=== PATIENT | female | born 1985 | race Caucasian/White ===

== ENCOUNTER → 2017-10-07 | Outpatient (REF) | payer OTHER | LOC: M SFHCLERA 18:15 | DX: J02.9 Acute pharyngitis, unspecified (principal) ==

== ENCOUNTER → 2017-10-10 | Outpatient (REF) | payer OTHER | LOC: M SFHCWAGY 13:10 | DX: N76.0 Acute vaginitis (principal); B96.89 Other specified bacterial agents as the cause of diseases classified elsewhere | CPT/HCPCS: 87077 ==

== ENCOUNTER → 2018-03-26 | Outpatient (REF) | payer OTHER ==
[2018-03-26 15:22] LABS: CHLAMYDIA DNA AMPLIFICATION NEGATIVE (NEGATIVE); GC DNA AMPLIFICATION NEGATIVE (NEGATIVE)
== END ==
LOC: M SFHCWAGY 10:23
DX: Z12.4 Encounter for screening for malignant neoplasm of cervix (principal)

== ENCOUNTER 2019-06-30 11:20 | Emergency (ER) | payer BC, OTHER ==
[~2019-06-30] VITALS: Ht 167.6 cm; Wt 73.2 kg
[2019-06-30] MEDS ORDERED: XANA0.5T PO (11:27)
[2019-06-30] MEDS ORDERED: NAPR250T4 PO (11:27)
[2019-06-30 12:03] LABS: BASO # 0.1 10^3/uL (0.0-0.2); BASO % 1.3 % (0.0-1.0); EOS # 0.1 10^3/uL (0.0-0.5); EOS % 2.2 % (0.0-3.0); HEMATOCRIT 38.3 % (36.0-47.0); LYMPH # 2.5 10^3/uL (1.5-5.0); LYMPH % 54.6 % (24.0-44.0); MEAN CORPUSCULAR HEMOGLOBIN 30.8 pg (27.0-33.0); MEAN CORPUSCULAR HGB CONC 33.9 g/dl (32.0-36.5); MEAN CORPUSCULAR VOLUME 90.8 fl (80.0-96.0); MONO # 0.4 10^3/uL (0.0-0.8); MONO % 8.4 % (0.0-5.0); NEUTROPHILS # 1.6 10^3/uL (1.5-8.5); NEUTROPHILS % 33.5 % (36.0-66.0); PLATELET COUNT, AUTOMATED 245 10^3/uL (150-450); RED BLOOD COUNT 4.22 10^6/uL (4.00-5.40); WHITE BLOOD COUNT 4.6 10^3/uL (4.0-10.0)
--- NOTE | 2019-06-30 12:07 | REP ---
Portable chest x-ray: Single view. History: Chest pain. Comparison chest x-ray: January 25, 2007. Findings: There is a mild thoracic scoliotic curvature unchanged. No other bony abnormality is seen. The lungs are well inflated and clear. Heart is not enlarged. Pulmonary vasculature is not increased. EKG electrodes are seen. Impression: No acute disease. Electronically Signed by Evens Groves MD 06/30/2019 11:59 A
[2019-06-30 12:42] LABS: ALT/SGPT 14 U/L (12-78); BILIRUBIN,DIRECT 0.2 MG/DL (0.0-0.2); BILIRUBIN,TOTAL 0.9 MG/DL (0.2-1.0); BLOOD UREA NITROGEN 10 MG/DL (7-18); CALCIUM LEVEL 8.5 MG/DL (8.5-10.1); CARBON DIOXIDE LEVEL 28 MEQ/L (21-32); CHLORIDE LEVEL 106 MEQ/L (98-107); CK-MB VALUE MASS 1.4 NG/ML (<3.6); CPK CREATINE PHOSPHOKINASE 145 U/L (26-192); CREATININE FOR GFR 0.79 MG/DL (0.55-1.30); GLOMERULAR FILTRATION RATE > 60.0 (>60); GLUCOSE, FASTING 93 MG/DL (70-100); LIPASE 96 U/L (73-393); MB/CK RELATIVE INDEX 0.97 (< OR =4); NT-PRO BNP 69 PG/ML (<125); POTASSIUM SERUM 3.9 MEQ/L (3.5-5.1); SODIUM LEVEL 139 MEQ/L (136-145); TOTAL PROTEIN 6.9 GM/DL (6.4-8.2); TROPONIN I < 0.02 NG/ML (< 0.10)
[2019-06-30 13:41] VITALS: BP 117/76
--- NOTE | 2019-06-30 20:58 | ECGEPIP ---
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
== END 2019-06-30 13:55 | disposition home or self-care (01) ==
LOC: M ED 11:20
DX: R07.89 Other chest pain (principal); R06.02 Shortness of breath; F17.210 Nicotine dependence, cigarettes, uncomplicated

== ENCOUNTER → 2019-07-15 | Outpatient (CLI) | payer BC ==
[~2019-07-15] MED LIST: NAPR250T4 PO; XANA0.5T PO
--- NOTE | 2019-07-19 08:48 | SLEEPHOME ---
DATE OF STUDY: 07/15/2019 ORDERED BY: Dr. Rea Diagnostic home sleep testing was performed due to concern for the obstructive sleep apnea syndrome in this patient with a history of snoring. For testing, a nocturnal T3 respiratory monitoring device was used. Continuous record was made of pulse, oxygen saturation, airflow, chest and abdominal strain and body position. 10 hours and 59 minutes of data were reviewed. There were 9 hours and 4 minutes marked as time in bed. During the interval marked time in bed, there were only 13 respiratory events identified of 10 seconds in duration or greater for a respiratory event index of 1.4. The events were primarily hypopneic. Baseline pulse rate was 68, pulse rate ranged 55-103. Baseline saturation 94%, saturations remained 90% plus throughout the study. Testing was performed in both the supine and nonsupine positions. IMPRESSION: Essentially normal diagnostic home sleep test with mild respiratory patterning. No clear evidence to support the obstructive sleep apnea syndrome was seen.
== END ==
LOC: M SLEEP HO 09:47
PROVIDERS: ATTEND Internal Medicine Cardiovascular Disease
DX: R06.83 Snoring (principal)

== ENCOUNTER 2020-08-02 13:09 | Emergency (ER) | payer BC ==
[~2020-08-02] VITALS: Ht 167.6 cm; Wt 68.9 kg
[2020-08-02] MEDS ORDERED: IBUP-1114 PO (13:15)
--- NOTE | 2020-08-02 14:04 | REP ---
INDICATION: right posterior rib pain s/p blunt trauma. COMPARISON: AP chest 06/30/2019, PA and lateral 01/23/2007. TECHNIQUE: PA chest with 3 dedicated rib views. FINDINGS: PA chest lungs are well inflated without infiltrate effusion atelectasis or masses no pneumothorax. No lateral apical pleural thickening. The heart is not enlarged there is no vascular redistribution or edema. The aorta narrowing intact there is a dextroconvex curvature of the midthoracic spine. The visualized bony structures are grossly unremarkable on the PA chest. No free air under the diaphragm. Right ribs posterior rib articulations appeared intact on both sides the dextro rotatory curvature of the thoracic spine is seen but the pedicles spinous processes and vertebral body heights are grossly intact the clavicle is lies scapula and humerus were unremarkable ribs showed no focal lesion, displaced fracture or other acute finding. IMPRESSION: 1. PA chest without acute finding. No effusion infiltrate pneumothorax or other parenchymal lung finding. Mediastinal and hilar contours are normal. 2. Bony thorax without acute findings. Stable dextroconvex scoliotic curvature of the midthoracic spine. Specific attention to the right ribs show no displaced rib fracture focal rib lesion or other acute bony finding. <Electronically signed by Srinath Kelly > 08/02/20 1400
[2020-08-02] MEDS ORDERED: ACET1TAB16 PO (14:47)
[2020-08-02 15:06] VITALS: BP 126/77
== END 2020-08-02 15:07 | disposition home or self-care (01) ==
LOC: M ED 13:09
DX: S20.211A Contusion of right front wall of thorax, initial encounter (principal); W52.XXXA Crushed, pushed or stepped on by crowd or human stampede, initial encounter; Y92.89 Other specified places as the place of occurrence of the external cause; F17.210 Nicotine dependence, cigarettes, uncomplicated

== ENCOUNTER → 2020-10-12 | Outpatient (REF) | payer BC ==
[~2020-10-12] MED LIST changes: +ACET1TAB16 PO; +IBUP-1114 PO
[2020-10-12 13:54] LABS: BASO # 0.1 10^3/uL (0.0-0.2); BASO % 1.3 % (0.0-1.0); EOS # 0.1 10^3/uL (0.0-0.5); EOS % 1.8 % (0.0-3.0); HEMATOCRIT 40.4 % (36.0-47.0); HEMOGLOBIN 13.1 g/dl (12.0-15.5); LYMPH # 1.8 10^3/uL (1.5-5.0); LYMPH % 45.8 % (24.0-44.0); MEAN CORPUSCULAR HEMOGLOBIN 29.9 pg (27.0-33.0); MEAN CORPUSCULAR HGB CONC 32.4 g/dl (32.0-36.5); MEAN CORPUSCULAR VOLUME 92.2 fl (80.0-96.0); MONO # 0.4 10^3/uL (0.0-0.8); MONO % 8.8 % (0.0-5.0); NEUTROPHILS # 1.7 10^3/uL (1.5-8.5); PLATELET COUNT, AUTOMATED 257 10^3/uL (150-450); RED BLOOD COUNT 4.38 10^6/uL (4.00-5.40)
[2020-10-12 16:27] LABS: ALBUMIN 4.2 GM/DL (3.2-5.2); ALT/SGPT 16 U/L (12-78); BILIRUBIN,TOTAL 1.2 MG/DL (0.2-1.0); BLOOD UREA NITROGEN 11 MG/DL (7-18); CALCIUM LEVEL 9.2 MG/DL (8.5-10.1); CARBON DIOXIDE LEVEL 26 MEQ/L (21-32); CHLORIDE LEVEL 106 MEQ/L (98-107); CHOLESTEROL LEVEL 199 MG/DL (<200); CHOLESTEROL RISK RATIO 2.584 (<5); CREATININE FOR GFR 0.79 MG/DL (0.55-1.30); FREE T4 0.96 NG/DL (0.76-1.46); GLOMERULAR FILTRATION RATE > 60.0 (>60); GLUCOSE, FASTING 105 MG/DL (70-100); HDL CHOLESTEROL 77 MG/DL (>40); LDL CHOLESTEROL 111 MG/DL (<100); NON-HDL-C 122 MG/DL; POTASSIUM SERUM 4.7 MEQ/L (3.5-5.1); SODIUM LEVEL 138 MEQ/L (136-145); TOTAL PROTEIN 6.9 GM/DL (6.4-8.2); TRIGLYCERIDES LEVEL 55 MG/DL (<150)
== END ==
LOC: M SFHCLERA 12:13
PROVIDERS: ATTEND Student in an Organized Health Care Education/Training Program
DX: R10.11 Right upper quadrant pain (principal); Z86.39 Personal history of other endocrine, nutritional and metabolic disease

== ENCOUNTER → 2020-10-21 | Outpatient (CLI) | payer BC ==
--- NOTE | 2020-10-21 10:26 | REP ---
INDICATION: RUQ ABD PAIN. COMPARISON: None. TECHNIQUE: Right upper quadrant sonography. FINDINGS: Scanning through the right upper quadrant of the abdomen demonstrates a normal sized, thin-walled gallbladder without evidence of stone or polyp. Common bile duct is normal measuring 0.2 cm in greatest diameter. No focal liver lesion is seen. Liver size is normal. No pancreatic abnormality is observed. No right renal abnormality is seen. There is no evidence of ascites. The right kidney measures 11.5 x 5.7 x 3.5 cm. IMPRESSION: Negative right upper quadrant sonography. <Electronically signed by Panfilo Groves > 10/21/20 1029
== END ==
LOC: M RAD 09:18
PROVIDERS: ATTEND Student in an Organized Health Care Education/Training Program
DX: R10.11 Right upper quadrant pain (principal)

== ENCOUNTER → 2022-02-06 | Outpatient (CLI) | payer OTHER ==
[~2022-02-06] MED LIST changes: -ACET1TAB16 PO; +ACET300T48 PO; +NAPR-849 PO; -NAPR250T4 PO
[2022-02-06 15:56] LABS: HEMATOCRIT 37.6 % (36.0-47.0); HEMOGLOBIN 12.7 g/dl (12.0-15.5); MEAN CORPUSCULAR HEMOGLOBIN 30.7 pg (27.0-33.0); MEAN CORPUSCULAR HGB CONC 33.8 g/dl (32.0-36.5); MEAN CORPUSCULAR VOLUME 90.8 fl (80.0-96.0); PLATELET COUNT, AUTOMATED 224 10^3/uL (150-450); RED BLOOD COUNT 4.14 10^6/uL (4.00-5.40); WHITE BLOOD COUNT 5.4 10^3/uL (4.0-10.0)
[2022-02-06 16:26] LABS: BLOOD UREA NITROGEN 9 MG/DL (7-18); CALCIUM LEVEL 8.9 MG/DL (8.5-10.1); CARBON DIOXIDE LEVEL 27 MEQ/L (21-32); CHLORIDE LEVEL 108 MEQ/L (98-107); GLOMERULAR FILTRATION RATE > 60.0 (>60); GLUCOSE, FASTING 129 MG/DL (70-100); POTASSIUM SERUM 3.9 MEQ/L (3.5-5.1); SODIUM LEVEL 137 MEQ/L (136-145)
== END ==
LOC: M WUC 13:58
PROVIDERS: ATTEND Physician Assistant
DX: E04.1 Nontoxic single thyroid nodule (principal); R55 Syncope and collapse

== ENCOUNTER → 2022-03-02 | Outpatient (REF) | payer OTHER ==
[2022-03-02 21:06] LABS: GC DNA AMPLIFICATION NEGATIVE (NEGATIVE)
== END ==
LOC: M LAB REF 17:19
PROVIDERS: ATTEND Physician Assistant
DX: R30.0 Dysuria (principal)

== ENCOUNTER → 2022-05-16 | Outpatient (CLI) | payer OTHER | LOC: M WUC 13:49 | PROVIDERS: ATTEND Physician Assistant | DX: R22.41 Localized swelling, mass and lump, right lower limb (principal); S93.411A Sprain of calcaneofibular ligament of right ankle, initial encounter; S93.691A Other sprain of right foot, initial encounter; X58.XXXA Exposure to other specified factors, initial encounter ==

== ENCOUNTER → 2022-05-31 | Outpatient (CLI) | payer OTHER | LOC: M WHC 11:33 | PROVIDERS: ATTEND Nurse Practitioner Family | DX: R10.2 Pelvic and perineal pain (principal) ==

== ENCOUNTER → 2022-05-31 | Outpatient (CLI) | payer OTHER ==
[2022-05-31 13:46] LABS: BASO # 0.1 10^3/uL (0.0-0.2); BASO % 0.9 % (0.0-1.0); EOS # 0.1 10^3/uL (0.0-0.5); EOS % 2.6 % (0.0-3.0); HEMATOCRIT 42.1 % (36.0-47.0); HEMOGLOBIN 13.8 g/dl (12.0-15.5); LYMPH # 2.2 10^3/uL (1.5-5.0); LYMPH % 41.8 % (24.0-44.0); MEAN CORPUSCULAR HEMOGLOBIN 30.1 pg (27.0-33.0); MEAN CORPUSCULAR HGB CONC 32.8 g/dl (32.0-36.5); MEAN CORPUSCULAR VOLUME 91.7 fl (80.0-96.0); MONO # 0.4 10^3/uL (0.0-0.8); MONO % 8.1 % (2.0-8.0); NEUTROPHILS # 2.5 10^3/uL (1.5-8.5); PLATELET COUNT, AUTOMATED 278 10^3/uL (150-450); RED BLOOD COUNT 4.59 10^6/uL (4.00-5.40); WHITE BLOOD COUNT 5.3 10^3/uL (4.0-10.0)
[2022-05-31 14:45] LABS: HEMOGLOBIN A1c 5.4 %
[2022-05-31 16:53] LABS: ALT/SGPT 15 U/L (12-78); BILIRUBIN,TOTAL 0.7 MG/DL (0.2-1.0); BLOOD UREA NITROGEN 12 MG/DL (7-18); CALCIUM LEVEL 9.3 MG/DL (8.5-10.1); CARBON DIOXIDE LEVEL 24 MEQ/L (21-32); CHLORIDE LEVEL 107 MEQ/L (98-107); CREATININE FOR GFR 0.82 MG/DL (0.55-1.30); GLOMERULAR FILTRATION RATE > 60.0 (>60); GLUCOSE, FASTING 73 MG/DL (70-100); POTASSIUM SERUM 4.5 MEQ/L (3.5-5.1); SODIUM LEVEL 137 MEQ/L (136-145); TOTAL PROTEIN 7.1 GM/DL (6.4-8.2)
== END ==
LOC: M PLALAB 12:10
PROVIDERS: ATTEND Nurse Practitioner Family
DX: N93.9 Abnormal uterine and vaginal bleeding, unspecified (principal)

== ENCOUNTER → 2022-08-18 | Outpatient (REF) | payer OTHER | LOC: M PLALAB 12:41 | PROVIDERS: ATTEND Nurse Practitioner Family | DX: Z12.4 Encounter for screening for malignant neoplasm of cervix (principal) ==

== ENCOUNTER → 2022-10-25 | Outpatient (CLI) | payer OTHER ==
[2022-10-25 09:54] LABS: BASO # 0.1 10^3/uL (0.0-0.2); BASO % 1.2 % (0.0-1.0); EOS # 0.2 10^3/uL (0.0-0.5); EOS % 4.2 % (0.0-3.0); HEMATOCRIT 42.4 % (36.0-47.0); HEMOGLOBIN 13.9 g/dl (12.0-15.5); LYMPH # 2.8 10^3/uL (1.5-5.0); LYMPH % 49.3 % (24.0-44.0); MEAN CORPUSCULAR HGB CONC 32.8 g/dl (32.0-36.5); MEAN CORPUSCULAR VOLUME 91.6 fl (80.0-96.0); MONO # 0.5 10^3/uL (0.0-0.8); NEUTROPHILS # 2.1 10^3/uL (1.5-8.5); NEUTROPHILS % 37.1 % (36.0-66.0); PLATELET COUNT, AUTOMATED 270 10^3/uL (150-450); RED BLOOD COUNT 4.63 10^6/uL (4.00-5.40); WHITE BLOOD COUNT 5.7 10^3/uL (4.0-10.0)
[2022-10-25 10:29] LABS: ALBUMIN 4.1 G/DL (3.2-5.2); ALKALINE PHOSPHATASE 72 U/L (46-116); ALT/SGPT 14 U/L (7.0-40); AST/SGOT 18 U/L (<34); BILIRUBIN,TOTAL 1.1 MG/DL (0.3-1.2); BLOOD UREA NITROGEN 10 MG/DL (9-23); CALCIUM LEVEL 9.2 MG/DL (8.5-10.1); CARBON DIOXIDE LEVEL 25 MMOL/L (20-31); CHLORIDE LEVEL 106 MMOL/L (98-107); CREATININE FOR GFR 0.76 MG/DL (0.55-1.30); GLOMERULAR FILTRATION RATE > 60.0 (>60); GLUCOSE, FASTING 99 MG/DL (60-100); POTASSIUM SERUM 4.6 MMOL/L (3.5-5.1); SODIUM LEVEL 138 MMOL/L (136-145); THYROID STIMULATING HORMONE 3.412 uIU/ML (0.55-4.78); TOTAL PROTEIN 6.8 G/DL (5.7-8.2)
== END ==
LOC: M LAB 08:15
PROVIDERS: ATTEND Student in an Organized Health Care Education/Training Program
DX: F41.9 Anxiety disorder, unspecified (principal)

== ENCOUNTER 2022-11-17 13:30 | Emergency (ER) | payer OTHER ==
[~2022-11-17] VITALS: Ht 167.6 cm; Wt 67.5 kg
[2022-11-17] MEDS ORDERED: LEXA1TAB (13:38)
[2022-11-17] MEDS ORDERED: PROHANCE 279.3MG/ML 5ML VIAL As Ordered ONE (17:35)
[2022-11-17 18:37] VITALS: BP 116/80
== END 2022-11-17 18:37 | disposition home or self-care (01) ==
LOC: M ED 13:30
DX: H57.02 Anisocoria (principal); F40.01 Agoraphobia with panic disorder
CPT/HCPCS: 70450; 70553; 80047; 99284; A9576

== ENCOUNTER → 2022-12-04 | Outpatient (CLI) | payer OTHER ==
[~2022-12-04] MED LIST changes: +LEXA1TAB PO
== END ==
LOC: M LABSMTC 09:10
PROVIDERS: ATTEND Anesthesiology
DX: Z01.12 Encounter for hearing conservation and treatment (principal)

== ENCOUNTER 2022-12-08 09:19 | Day surgery (SDC) | payer OTHER ==
[~2022-12-08] VITALS: Ht 167.6 cm; Wt 65.3 kg
[2022-12-08] MEDS ORDERED: LR 1,000 ML IV SCH (10:10)
[2022-12-08] MEDS ORDERED: ONDANSETRON 4MG 2ML VIAL As Ordered ONE (15:18)
[2022-12-08] MEDS ORDERED: propofoL 200 MG/20 ML VIAL As Ordered ONE ×2 (15:18→16:06)
[2022-12-08] MEDS ORDERED: MIDAZOLAM INJ 2MG/2ML VIAL As Ordered ONE (15:18)
[2022-12-08] MEDS ORDERED: LIDOCAINE 2% 100MG/5ML SDV (FOR ANES.) As Ordered ONE (15:18)
[2022-12-08] MEDS ORDERED: fentaNYL 100 MCG/2 ML INJECTION As Ordered ONE (15:18)
[2022-12-08] MEDS ORDERED: ACETAMINOPHEN 1000MG 100ML IV BAG As Ordered ONE (15:21)
[2022-12-08] MEDS ORDERED: GLYCOPYRROLATE INJ 0.2 MG/ML 2 ML VIAL As Ordered ONE (16:12)
[2022-12-08] MEDS ORDERED: KETOROLAC 60MG 2ML VIAL As Ordered ONE (16:28)
[2022-12-08] MEDS ORDERED: ONDANSETRON 4MG 2ML VIAL IV PRN (16:55)
[2022-12-08] MEDS ORDERED: fentaNYL 100 MCG/2 ML INJECTION IV PRN (16:55)
[2022-12-08] MEDS: MORPHINE 2 MG/ML 1ML VIAL IV PRN ×2 (17:17→17:22)
[2022-12-08] MEDS: oxyCODONE 5MG TAB PO PRN ×2 (17:18→17:49)
[2022-12-08 18:10] VITALS: BP 126/77
== END 2022-12-08 18:17 | disposition home or self-care (01) ==
LOC: M SDC 09:19
PROVIDERS: ATTEND Obstetrics & Gynecology
DX: N84.0 Polyp of corpus uteri (principal); R55 Syncope and collapse; F41.0 Panic disorder [episodic paroxysmal anxiety]; E04.1 Nontoxic single thyroid nodule; I45.10 Unspecified right bundle-branch block; F32.A Depression, unspecified; Z79.899 Other long term (current) drug therapy; F17.210 Nicotine dependence, cigarettes, uncomplicated
CPT/HCPCS: 58558; 81025; 88305; J0131; J1100; J1885; J2250; J2270; J2405; J3010